=== PATIENT | female | born 1950 | race Two or more races ===

== ENCOUNTER → 2016-10-27 | Outpatient (REF) | payer BC ==
[2016-10-27 15:19] LABS: MEAN CORPUSCULAR HEMOGLOBIN 30.9 pg (27.0-33.0); MEAN CORPUSCULAR HGB CONC 33.3 g/dl (32.0-36.5); MEAN CORPUSCULAR VOLUME 92.8 fl (80.0-96.0); RED CELL DISTRIBUTION WIDTH 12.5 % (11.5-14.5); WHITE BLOOD COUNT 6.9 K/mm3 (4.0-10.0)
[2016-10-27 16:02] LABS: ALBUMIN 3.5 GM/DL (3.2-5.2); ALBUMIN/GLOBULIN RATIO 1.06 (1.00-1.93); ALKALINE PHOSPHATASE 123 U/L (45-117); ALT/SGPT 16 U/L (12-78); ANION GAP 7 MEQ/L (8-16); AST/SGOT 10 U/L (15-37); BILIRUBIN,TOTAL 0.3 MG/DL (0.2-1.0); BLOOD UREA NITROGEN 8 MG/DL (7-18); CALCIUM LEVEL 8.9 MG/DL (8.8-10.2); CARBON DIOXIDE LEVEL 31 MEQ/L (21-32); CHLORIDE LEVEL 104 MEQ/L (98-107); CHOLESTEROL LEVEL 154 MG/DL (<200); CREATININE FOR GFR 0.78 MG/DL (0.55-1.02); GLOMERULAR FILTRATION RATE > 60.0 (>45); GLUCOSE, FASTING 97 MG/DL (80-110); MAGNESIUM LEVEL 2.2 MG/DL (1.8-2.4); POTASSIUM SERUM 4.3 MEQ/L (3.5-5.1); SODIUM LEVEL 142 MEQ/L (136-145); TOTAL PROTEIN 6.8 GM/DL (6.4-8.2); TRIGLYCERIDES LEVEL 103 MG/DL (<150)
== END ==
LOC: M SFHCLACO 09:58
PROVIDERS: ATTEND Physician Assistant
DX: Z51.81 Encounter for therapeutic drug level monitoring (principal); Z79.899 Other long term (current) drug therapy; J44.9 Chronic obstructive pulmonary disease, unspecified; F17.200 Nicotine dependence, unspecified, uncomplicated; E78.2 Mixed hyperlipidemia; E55.9 Vitamin D deficiency, unspecified

== ENCOUNTER → 2017-04-06 | Outpatient (REF) | payer BC ==
[2017-04-06 15:12] LABS: MEAN CORPUSCULAR HEMOGLOBIN 30.6 pg (27.0-33.0); MEAN CORPUSCULAR HGB CONC 33.5 g/dl (32.0-36.5); MEAN CORPUSCULAR VOLUME 91.3 fl (80.0-96.0); RED CELL DISTRIBUTION WIDTH 13.2 % (11.5-14.5); WHITE BLOOD COUNT 8.2 10^3/uL (4.0-10.0)
[2017-04-06 15:17] LABS: ALBUMIN 3.7 GM/DL (3.2-5.2); ALBUMIN/GLOBULIN RATIO 1.06 (1.00-1.93); ALKALINE PHOSPHATASE 125 U/L (45-117); ALT/SGPT 18 U/L (12-78); ANION GAP 7 MEQ/L (8-16); AST/SGOT 10 U/L (15-37); BILIRUBIN,TOTAL 0.4 MG/DL (0.2-1.0); BLOOD UREA NITROGEN 8 MG/DL (7-18); CALCIUM LEVEL 9.5 MG/DL (8.8-10.2); CARBON DIOXIDE LEVEL 31 MEQ/L (21-32); CHLORIDE LEVEL 100 MEQ/L (98-107); CHOLESTEROL LEVEL 168 MG/DL (<200); GLOMERULAR FILTRATION RATE > 60.0 (>45); GLUCOSE, FASTING 94 MG/DL (80-110); MAGNESIUM LEVEL 2.3 MG/DL (1.8-2.4); SODIUM LEVEL 138 MEQ/L (136-145); TOTAL PROTEIN 7.2 GM/DL (6.4-8.2); TRIGLYCERIDES LEVEL 123 MG/DL (<150)
== END ==
LOC: M SFHCLACO 08:53
PROVIDERS: ATTEND Physician Assistant
DX: J44.9 Chronic obstructive pulmonary disease, unspecified (principal); F17.200 Nicotine dependence, unspecified, uncomplicated; E78.2 Mixed hyperlipidemia; K21.9 Gastro-esophageal reflux disease without esophagitis

== ENCOUNTER → 2017-07-06 | Outpatient (REF) | payer BC ==
[2017-07-06 15:17] LABS: ALBUMIN 3.6 GM/DL (3.2-5.2); ALBUMIN/GLOBULIN RATIO 1.24 (1.00-1.93); ALKALINE PHOSPHATASE 129 U/L (45-117); ALT/SGPT 17 U/L (12-78); ANION GAP 7 MEQ/L (8-16); AST/SGOT 12 U/L (7-37); BILIRUBIN,TOTAL 0.3 MG/DL (0.2-1.0); BLOOD UREA NITROGEN 10 MG/DL (7-18); CALCIUM LEVEL 8.8 MG/DL (8.8-10.2); CARBON DIOXIDE LEVEL 31 MEQ/L (21-32); CHLORIDE LEVEL 104 MEQ/L (98-107); CHOLESTEROL LEVEL 167 MG/DL (<200); CHOLESTEROL RISK RATIO 2.492 (<5); CREATININE FOR GFR 0.79 MG/DL (0.55-1.02); GLOMERULAR FILTRATION RATE > 60.0 (>45); GLUCOSE, FASTING 93 MG/DL (80-110); HDL CHOLESTEROL 67 MG/DL (>40); LDL CHOLESTEROL 79.2 MG/DL (<100); NON-HDL-C 100 MG/DL; POTASSIUM SERUM 3.8 MEQ/L (3.5-5.1); SODIUM LEVEL 142 MEQ/L (136-145); TOTAL PROTEIN 6.5 GM/DL (6.4-8.2); TRIGLYCERIDES LEVEL 104 MG/DL (<150)
[2017-07-06 15:24] LABS: TOTAL 25(OH) VITAMIN D 102.1 NG/ML (30.0-100.0)
== END ==
LOC: M SFHCLACO 09:14
DX: E78.2 Mixed hyperlipidemia (principal); K21.9 Gastro-esophageal reflux disease without esophagitis; E55.9 Vitamin D deficiency, unspecified
CPT/HCPCS: 80053

== ENCOUNTER → 2018-01-04 | Outpatient (REF) | payer BC ==
[2018-01-04 15:20] LABS: HEMATOCRIT 50.5 % (36.0-47.0); HEMOGLOBIN 16.1 g/dl (12.0-15.5); MEAN CORPUSCULAR HEMOGLOBIN 30.5 pg (27.0-33.0); MEAN CORPUSCULAR HGB CONC 31.9 g/dl (32.0-36.5); MEAN CORPUSCULAR VOLUME 95.6 fl (80.0-96.0); PLATELET COUNT, AUTOMATED 219 10^3/uL (150-450); RED BLOOD COUNT 5.28 10^6/uL (4.00-5.40); WHITE BLOOD COUNT 7.4 10^3/uL (4.0-10.0)
[2018-01-04 15:44] LABS: TOTAL 25(OH) VITAMIN D 64.7 NG/ML (30.0-100.0)
[2018-01-04 15:52] LABS: ALBUMIN/GLOBULIN RATIO 1.25 (1.00-1.93); ALKALINE PHOSPHATASE 139 U/L (45-117); ALT/SGPT 16 U/L (12-78); ANION GAP 6 MEQ/L (8-16); AST/SGOT 13 U/L (7-37); BILIRUBIN,TOTAL 0.5 MG/DL (0.2-1.0); BLOOD UREA NITROGEN 13 MG/DL (7-18); CALCIUM LEVEL 8.9 MG/DL (8.8-10.2); CARBON DIOXIDE LEVEL 31 MEQ/L (21-32); CHLORIDE LEVEL 105 MEQ/L (98-107); CHOLESTEROL LEVEL 168 MG/DL (<200); CHOLESTEROL RISK RATIO 2.709 (<5); CREATININE FOR GFR 0.81 MG/DL (0.55-1.30); GLOMERULAR FILTRATION RATE > 60.0 (>45); GLUCOSE, FASTING 88 MG/DL (70-100); HDL CHOLESTEROL 62 MG/DL (>40); LDL CHOLESTEROL 79.8 MG/DL (<100); MAGNESIUM LEVEL 2.3 MG/DL (1.8-2.4); NON-HDL-C 106 MG/DL; SODIUM LEVEL 142 MEQ/L (136-145); TOTAL PROTEIN 7.2 GM/DL (6.4-8.2); TRIGLYCERIDES LEVEL 131 MG/DL (<150)
== END ==
LOC: M SFHCLACO 08:33
DX: E55.9 Vitamin D deficiency, unspecified (principal); E78.2 Mixed hyperlipidemia; K21.9 Gastro-esophageal reflux disease without esophagitis; J44.9 Chronic obstructive pulmonary disease, unspecified; F17.200 Nicotine dependence, unspecified, uncomplicated

== ENCOUNTER → 2019-11-16 | Outpatient (REF) | payer MEDICARE | LOC: M SFHCADAM 10:55 | PROVIDERS: ATTEND Physician Assistant | DX: E78.2 Mixed hyperlipidemia (principal); K21.9 Gastro-esophageal reflux disease without esophagitis; E55.9 Vitamin D deficiency, unspecified ==

== ENCOUNTER → 2020-09-24 | Outpatient (CLI) | payer MEDICARE ==
--- NOTE | 2020-09-24 18:30 | REP ---
INDICATION: PAIN INLEFT HIP. COMPARISON: None. TECHNIQUE: AP and frogleg views of the left hip. Four views total. FINDINGS: There is severe osteoarthritis of the left hip with obliteration of the joint space superiorly, extensive reactive sclerosis and well established osteophyte formation. There is some remodeling and flattening of the superior surface of the femoral head. In addition, there are Jil trochanteric soft tissue calcifications consistent with calcific tendinitis or bursitis. The left hemipelvis is otherwise intact. Left SI joint is unremarkable. IMPRESSION: Severe osteoarthritis left hip. Jil trochanteric soft tissue calcifications. <Electronically signed by John Day > 09/24/20 [id number]
== END ==
LOC: M ADAMS 13:58
PROVIDERS: ATTEND Physician Assistant
DX: M16.12 Unilateral primary osteoarthritis, left hip (principal)

== ENCOUNTER → 2020-10-01 | Outpatient (CLI) | payer MEDICARE ==
--- NOTE | 2020-10-02 23:31 | ECWPNPC ---
PATIENT NAME: KULWANT ANTHONY : 1950 GENDER: FEMALE VISIT DATE: 10/01/2020 DISCHARGE DATE: 10/01/20 1220 VISIT LOCKED DATE TIME: PHYSICIAN: JESSICA FRASER RESOURCE: JESSICA FRASER REASON FOR APPOINTMENT 1. LEFT HIP HISTORY OF PRESENT ILLNESS DEPRESSION SCREENING: PHQ-9 LITTLE INTEREST OR PLEASURE IN DOING THINGSNOT AT ALL FEELING DOWN, DEPRESSED, OR HOPELESSMORE THAN HALF THE DAYS TROUBLE FALLING OR STAYING ASLEEP, OR SLEEPING TOO MUCHNEARLY EVERY DAY FEELING TIRED OR HAVING LITTLE ENERGYMORE THAN HALF THE DAYS POOR APPETITE OR OVEREATING MORE THAN HALF THE DAYS FEELING BAD ABOUT YOURSELF-OR THAT YOU ARE A FAILURE OR HAVE LET YOURSELF OR YOUR FAMILY DOWN NOT AT ALL TROUBLE CONCENTRATING ON THINGS, SUCH READING THE NEWSPAPER OR WATCHING TELEVISION SEVERAL DAYS MOVING OR SPEAKING SO SLOWLY THAT OTHER PEOPLE COULD HAVE NOTICED. OR THE OPPOSITE- BEING SO FIDGETY OR RESTLESS THAT YOU HAVE BEEN MOVING AROUND A LOT MORE THAN USUALNOT AT ALL THOUGHTS THAT YOU WOULD BE BETTER OFF , OR OF HURTING YOURSELF IN SOME WAY?NOT AT ALL TOTAL SCORE:10 INTERPRETATIONMODERATE DEPRESSION PHQ-2 (2015 EDITION) LITTLE INTEREST OR PLEASURE IN DOING THINGS?NOT AT ALL FEELING DOWN, DEPRESSED, OR HOPELESS?MORE THAN HALF THE DAYS TOTAL SCORE2 70-YEAR-OLD FEMALE IN FOR INITIAL PAIN CONSULT REGARDING LEFT HIP PAIN. PATIENT ADMITS THE PAIN IS BEEN PRESENT FOR YEARS AND DENIES TREATMENT IN THE PAST THAT IT HELPED QUELL HER PAIN. SHE RATES HER PAIN CURRENTLY AT A 10 OUT OF 10 AND DESCRIBES IT ACHING, CONTINUOUS, AND SHARP. PATIENT HAS BEEN ON TRAMADOL IN THE PAST WITH NO RELIEF. GENERAL: - - -. FALL RISK SCREENING: SCREENING : NO FALLS REPORTED IN THE LAST YEAR , : NO FALLS REPORTED IN THE LAST YEAR. PAIN SCREENING: PATIENT HAS A COMPLAINT OF ACUTE OR CHRONIC PAIN :YES LOCATION OF PAIN:LEFT HIP INTENSITY OF PAIN (SCALE OF 1 TO 10):10 WHAT DOES YOUR PAIN FEEL LIKE:ACHING, CONTINOUS, SHARP DURATION:CONTINOUS, CONSTANT, AWAKENS FROM SLEEP PAIN IS INCREASED BY:ACTIVITIES, PROLONGED STANDING PAIN IS DECREASED BY:OTHERS NOTHING RELIEVES THE PAIN. PATIENT HAS TRIED TRAMADOL AND STEROID INJECTIONS AND STATES SHE HAS "NO RELIEF WITH ANYTHING SHE HAS TRIED". NURSING NOTE: - - -. PAIN CENTER INTAKE QUESTIONS: DO YOU HAVE A HISTORY OF MRSA? :NO DO YOU TAKE A BLOOD THINNERS? :NO DO YOU HAVE ANY BLEEDING DISORDERS? :NO ANY NEW NUMBNESS OR WEAKNESS IN YOUR LEGS OR ARMS? :NO ANY PACEMAKER,DEFIBRILLATOR, OR DORSAL COLUMN STIMULATOR? :NO DO YOU HAVE ANY RASHES OR OPEN SORES? :NO ARE YOU ALLERGIC TO IV DYE? :NO ARE YOU DIABETIC? :NO ANY NEW PROBLEMS WITH YOUR MEDICATIONS? :NO HAVE YOU RECEIVED A VACCINE IN THE PAST 30 DAYS? :YES IF SO WHAT VACCINE AND WHEN? LAST COVID VACCINATION 08/25/2020 DO YOU PLAN TO RECEIVE A VACCINE IN THE NEXT 21 DAYS? :NO DO YOU NEED ANY PRESCRIPTION? :NO DO YOU TAKE ANY IMMUNOSUPPRESSIVE MEDICATIONS? :NO CURRENT MEDICATIONS TAKING ATORVASTATIN CALCIUM 20 MG TABLET 1 TABLET ORALLY ONCE A DAY IN THE MORNING TAKING FLONASE ALLERGY RELIEF 50 MCG/ACT SUSPENSION 1 SPRAY IN EACH NOSTRIL NASALLY ONCE A DAY TAKING ASPIRIN 81 MG TABLET DELAYED RELEASE 1 TABLET ORALLY ONCE A DAY IN THE AFTERNOON TAKING OXYGEN HOME AND PORTABLE (MOBILE WITHIN HOME), DX=J44.9 88% RA AMB, 92% C O2 AMB. 89% RA RESTING, 93% C O2 RESTING 24/7, NOTES: REQUESTING INOGEN TAKING SPIRIVA RESPIMAT 2.5 MCG/ACT AEROSOL SOLUTION 2 PUFFS INHALATION ONCE A DAY TAKING ALBUTEROL SULFATE (2.5 MG/3ML) 0.083% NEBULIZATION SOLUTION 3 ML INHALATION THREE TIMES A DAY TAKING PROAIR HFA 108 (90 BASE) MCG/ACT AEROSOL SOLUTION 2 PUFFS INHALATION EVERY 4 HRS NEEDED TAKING SEROQUEL 50 MG TABLET 1 TABLET AT BEDTIME, ALONG WITH THE SEROQUEL 400 MG ORALLY ONCE A DAY TAKING SEROQUEL 400 MG TABLET 1 TABLET ORALLY ONCE A DAY AT BEDTIME TAKING VIIBRYD 40 MG TABLET 1 TABLET WITH FOOD ORALLY ONCE A DAY IN THE MORNING TAKING OLANZAPINE 10 MG TABLET 1 TABLET ORALLY ONCE A DAY IN THE AFTERNOON TAKING LORAZEPAM 0.5 MG TABLET 1 TABLET ORALLY 5 TIMES A DAY NEEDED, MDD=5 TAKING OMEPRAZOLE 20 MG TABLET DELAYED RELEASE 2 TABLETS ORALLY ONCE A DAY TAKING PROLIA 60 MG/ML SOLUTION 1 PRE-FILLED SYRINGE SUBCUTANEOUS EVERY 6 MONTHS TAKING VITAMIN D (ERGOCALCIFEROL) 38650 UNIT CAPSULE 1 CAPSULE ORALLY ONCE A MONTH TAKING POSTURE-D CALCIUM/MAGNESIUM [phone] TABLET 1 TABLET ORALLY TWICE A DAY TAKING CALCIUM CITRATE PLUS - TABLET 1 TAB ORALLY TWICE A DAY TAKING IBUPROFEN 200 MG TABLET 4 TABLETS ORALLY 4 TIMES A DAY TAKING GLUCOSAMINE 500 MG TABLET 1 TABLET ORALLY TWICE A DAY TAKING VITAMIN C 500 MG CAPSULE DIRECTED ORALLY TAKING ADVAIR DISKUS 100-50 MCG/DOSE MISCELLANEOUS 1 PUFF INHALATION TWICE A DAY NOT-TAKING TRAMADOL HCL 50 MG TABLET 1 TABLET ORALLY 3 TIMES A DAY NEEDED NOT-TAKING CLINDAMYCIN HCL 300 MG CAPSULE 1 CAPSULE ORALLY TWICE A DAY MEDICATION LIST REVIEWED AND RECONCILED WITH THE PATIENT PAST MEDICAL HISTORY HYPERLIPIDEMIA COPD SMOKER POSTTRAUMATIC STRESS DISORDER ANXIETY WITH DEPRESSION GERD STRESS INCONTINENCE DIFFUSE OSTEOARTHRITIS OSTEOPOROSIS LEFT-SIDED SCIATICA VITAMIN D DEFICIENCY ALLERGIES PENICILLIN (FOR ALLERGIES USE ONLY) FOSAMAX SULFA (FOR ALLERGY USE ONLY) FAMILY HISTORY SON(S): ALIVE 1 BROTHER(S) , 3 SISTER(S) . 21 SON(S) , 1 DAUGHTER(S) . 1 SISTER OF HEART/LUNG DISEASE. SON DIAGNOSED WITH CANCER. SOCIAL HISTORY GENERAL: TOBACCO USE ARE YOU A:CURRENT SMOKER ARE YOU INTERESTED IN QUITTING?THINKING ABOUT QUITTING - HAS CUT DOWN TO LESS THAN 1 PPD HOW MANY CIGARETTES A DAY DO YOU SMOKE?11-20 HOW SOON AFTER YOU WAKE UP DO YOU SMOKE YOUR FIRST CIGARETTE?6-30 MIN HOW OFTEN DO YOU SMOKE CIGARETTES?EVERY DAY PATIENT COUNSELED ON THE DANGERS OF TOBACCO USE AND URGED TO QUIT:09/24/2020 LATEX QUESTIONNAIRE LATEX ALLERGY : HAVE YOU EVER DEVELOPED ANY TYPE OF REACTION AFTER HANDLING LATEX PRODUCTS SUCH RUBBER GLOVES, CONDOMS, DIAPHRAGMS, BALLOONS, SOCKS, OR UNDERWEAR?NO LATEX ALLERGY : HAVE YOU EVER DEVELOPED ANY TYPE OF REACTION DURING OR AFTER DENTAL APPOINTMENT, VAGINAL/RECTAL EXAMINATION, SURGICAL PROCEDURE, OR ANY OTHER EXPOSURE?NO LATEX RISK : HAVE YOU EVER HAD ANY DIFFICULTY BREATHING OR HIVES AFTER EATING OR HANDLING ANY FRUITS, OR VEGETABLES; SUCH KIWI, BANANAS, STONE FRUITS, OR CHESTNUTSNO LATEX RISK : DO YOU HAVE A PREVIOUS PERSONAL HISTORY OF MORE THAN NINE SURGERIES, SPINA BIFIDA, OR REPEATED CATHERIZATIONS? NO LATEX RISK : ARE YOU FREQUENTLY EXPOSED TO LATEX PRODUCTS IN YOUR OCCUPATION?NO DATE ASKED : 10/01/2020 ALCOHOL USE: RARELY. RECREATIONAL DRUG USE: NEVER DRUG USE?NO NO CAFFEINE HOW OFTEN AND HOW MUCH? 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 OCCUPATION: UNEMPLOYED. EXERCISE: NO REGULAR EXERCISE. MARITAL STATUS: SINGLE. NO OTHERS AT HOME. IMMUNIZATION PROGRAM ELIGIBILITY STATUS UNCHANGED:__ PARENT LAST NAME:__ FIRST NAME, MIDDLE INITIAL:__ MOTHER'S MAIDEN NAME:__ MEDICAID/MEDICAID MANAGED CARE PLAN:__ NOT INSURED:__ /[place]:__ UNDERINSURED:__ CHILD HEALTH PLUS B__ INSURANCE:__ INFLUENZA VACCINE:__ MALE 6 MONTH RISK ASSESSMENT FOR STD MONOGOMOUS?YES HIV POSITIVE?NO EVER INJECT DRUGS?NO FEMALE 6 MONTH RISK ASSESSMENT FOR STD DESCRIBE YOUR SEXUAL PARTNERS:MALE MONOGAMOUS?YES EVER INJECT DRUGS?NO IS THERE ANYTHING ELSE WE SHOULD TALK ABOUT CONCERNING YOUR SEXUAL HISTORY OR PRACTICE?YES INTENSITY SCALE REVIEWED HOUSING: HOUSE. REVIEW OF SYSTEMS CONSTITUTIONAL: ANY RECENT FEVER NO . CHILLS NO . WEIGHT CHANGE OF UNKNOWN REASONS NO . MUSCULOSKELETAL: ANY UNUSUAL JOINT PAIN OR SWELLING NOT MENTIONED NO . SYSTEMIC LUPUS NO . ANY NEUROMUSCULAR DISORDER NOT MENTIONED NO . LYME DISEASE NO . GASTROENTEROLOGY: ANY NEW CHANGE IN BOWEL CONTROL? NO . HISTORY OF LIVER DISORDER NOT MENTIONED NO . HISTORY OF UNUSUAL ABDOMINAL PAIN OR CRAMPING NOT MENTIONED NO . NO CONSTIPATION. GENITOURINARY: ANY NEW CHANGE IN BLADDER CONTROL? NO . ANY RENAL/KIDNEY CONDITON NOT MENTIONED NO . NEUROLOGY: HISTORY OF TBI NOT MENTIONED NO . OTHER NEW NUMBNESS OR PAIN PATTERNS NOT MENTIONED NO . NEW ONSET DIZZINESS OR NEUROLOGICAL CHANGES NOT MENTIONED NO . HISTORY OF SEVERE HEADACHES NOT MENTIONED NO . HISTORY OF STROKE OR NEUROLOGICAL DISORDER NOT MENTIONED NO . CARDIOLOGY: HEART SURGERY NO . CONGESTIVE HEART FAILURE/FLUID OVERLOAD NOT MENTIONED NO . HISTORY OF CHEST PAIN,IRREGULAR HEART BEAT NOT MENTIONED NO . RESPIRATORY: SHORTNESS OF BREATH ON EXERTION, WHEEZES, UNUSUAL COUGH NOT MENTIONED NO . ENDOCRINOLOGY: ADRENAL GLAND OR THYROID DISORDERS NOT MENTIONED NO . UNUSUAL URINATION, DIZZINESS OR LETHARGY NOT MENTIONED NO . VITAL SIGNS WT 156.6 LBS, HT 62 IN, BMI 28.64 INDEX, BP 147/68 MM HG, HR 134 /MIN, RR 18 /MIN, TEMP 97.7 F, OXYGEN SAT % 90%, SAFE IN ENV? (Y/N) YES, NA INITIALS NJ 11:10, REVIEWED BY: ED GIBSON MA. EXAMINATION GENERAL EXAMINATION: GENERALNO ACUTE DISTRESS, WELL NOURISHED AND HYDRATED. PSYCHAPPROPRIATE MOOD AND AFFECT . LUNGS:CLEAR TO AUSCULTATION BILATERALLY, NO WHEEZES, RHONCHI, RALES. HEART:NO MURMURS, REGULAR RATE AND RHYTHM. MUSCULOSKELETAL:EXQUISITELY TENDER OVER LEFT HIP . ASSESSMENTS PRIMARY OSTEOARTHRITIS OF BOTH HIPS - M16.0 (PRIMARY) USE OF OPIATES FOR THERAPEUTIC PURPOSES - Z79.891 TREATMENT PRIMARY OSTEOARTHRITIS OF BOTH HIPS STOP TRAMADOL HCL TABLET, 50 MG, 1 TABLET, ORALLY, 3 TIMES A DAY NEEDED START HYDROCODONE-ACETAMINOPHEN TABLET, 5-325 MG, 1 TABLET NEEDED, ORALLY, EVERY 12 HRS MDD 2, 30 DAYS, 60 LAB: URINE TEST GROUP LACIE GIBSON 10/01/2020 12:15:50 PM > LAST DOSE : LORAZEPAM 10/01/2020, TRAMADOL 09/26/2020 NOTES: 70-YEAR-OLD FEMALE IN FOR INITIAL PAIN CONSULT. GIVEN PRESENTING SYMPTOMS RECOMMEND HYDROCODONE 5/325 MG TWICE A DAY NEEDED FOR PAIN WITH FOLLOW-UP IN ONE MONTH TO DETERMINE EFFICACY OF TREATMENT. PATIENT HAS EXPRESSED UNDERSTANDING OF AND WAS IN AGREEMENT WITH TREATMENT PLAN. GIVEN TIME TO ASK QUESTIONS AND EXPRESS CONCERNS. , ISTOP REGISTRY REVIEWED AND DEMONSTRATES COMPLLIANCE. (REF # [id number] ) BRINGS IN MEDICATIONS WHICH IS APPROPRIATE FOR WHAT WAS DISPENSED. RECENT URINE TOXICOLOGY REVIEWED. NO UNAUTHORIZED MEDICATIONS. NO ILLICIT SUBSTANCES AND PRESCRIBED MEDICATIONS WERE PRESENT. PROCEDURE CODES FA211 ESTABILISHED PATIENT [facility] CHARGE DISPOSITION & COMMUNICATION FOLLOW UP 4 WEEKS (REASON: NEW MEDICATION) ELECTRONICALLY SIGNED BY PEG REYES ON 10/02/2020 AT 10:42 AM EDT DISCLAIMER : THIS IS A VISIT SUMMARY EXTRACTED FROM THE [employer] CHART. IT IS NOT A COPY OF THE [employer] PROGRESS NOTE. TRAVIS
== END ==
LOC: M PAIN 11:00
PROVIDERS: ATTEND Family Medicine
DX: M16.0 Bilateral primary osteoarthritis of hip (principal); J44.9 Chronic obstructive pulmonary disease, unspecified; K21.9 Gastro-esophageal reflux disease without esophagitis; E55.9 Vitamin D deficiency, unspecified; F17.210 Nicotine dependence, cigarettes, uncomplicated; Z86.59 Personal history of other mental and behavioral disorders; Z88.0 Allergy status to penicillin; Z88.2 Allergy status to sulfonamides; Z88.8 Allergy status to other drugs, medicaments and biological substances; Z79.82 Long term (current) use of aspirin; Z79.899 Other long term (current) drug therapy

== ENCOUNTER → 2020-10-29 | Outpatient (CLI) | payer MEDICARE ==
--- NOTE | 2020-10-31 02:35 | ECWPNPC ---
PATIENT NAME: KULWANT ANTHONY : 1950 GENDER: FEMALE VISIT DATE: 10/29/2020 DISCHARGE DATE: 10/29/20 1552 VISIT LOCKED DATE TIME: PHYSICIAN: JESSICA FRASER RESOURCE: JESSICA FRASER REASON FOR APPOINTMENT 1. NEW MEDICATION HISTORY OF PRESENT ILLNESS GENERAL: -70-YEAR-OLD FEMALE IN FOR CHRONIC LEFT HIP PAIN FOLLOW-UP. SHE RATES HER PAIN CURRENTLY AT A 6 OUT OF 10 AND DESCRIBES IT ACHING, AND CONTINUOUS. PATIENT WAS STARTED ON HYDROCODONE AT LAST CLINIC VISIT AND SHE ADMITS TODAY THAT IT DOES HELP HOWEVER IT DOES NOT COMPLETELY COVER HER PAIN. FALL RISK SCREENING: SCREENING : NO FALLS REPORTED IN THE LAST YEAR. PAIN SCREENING: PATIENT HAS A COMPLAINT OF ACUTE OR CHRONIC PAIN :YES LOCATION OF PAIN:LOW BACK, LEFT HIP INTENSITY OF PAIN (SCALE OF 1 TO 10):6 WHAT DOES YOUR PAIN FEEL LIKE:ACHING, CONTINOUS DURATION:CONTINOUS, CONSTANT, AWAKENS FROM SLEEP PAIN IS INCREASED BY:ACTIVITIES, PROLONGED STANDING PAIN IS DECREASED BY:USE OF PAIN MEDICATIONS, SITTING PATIENT STATES THE "PAIN MEDS HELP VERY LITTLE." NURSING NOTE: -. PAIN CENTER INTAKE QUESTIONS: DO YOU HAVE A HISTORY OF MRSA? :NO DO YOU TAKE A BLOOD THINNERS? :NO DO YOU HAVE ANY BLEEDING DISORDERS? :NO ANY NEW NUMBNESS OR WEAKNESS IN YOUR LEGS OR ARMS? :NO ANY PACEMAKER,DEFIBRILLATOR, OR DORSAL COLUMN STIMULATOR? :NO DO YOU HAVE ANY RASHES OR OPEN SORES? :NO ARE YOU ALLERGIC TO IV DYE? :NO ARE YOU DIABETIC? :NO ANY NEW PROBLEMS WITH YOUR MEDICATIONS? :YES WILL DISCUSS WITH PROVIDER HAVE YOU RECEIVED A VACCINE IN THE PAST 30 DAYS? :NO DO YOU PLAN TO RECEIVE A VACCINE IN THE NEXT 21 DAYS? :NO DO YOU NEED ANY PRESCRIPTION? :NO DO YOU TAKE ANY IMMUNOSUPPRESSIVE MEDICATIONS? :YES LAST DOSE OF PREDNISOLONE 10/29/2020 CURRENT MEDICATIONS TAKING ATORVASTATIN CALCIUM 20 MG TABLET 1 TABLET ORALLY ONCE A DAY IN THE MORNING TAKING FLONASE ALLERGY RELIEF 50 MCG/ACT SUSPENSION 1 SPRAY IN EACH NOSTRIL NASALLY ONCE A DAY TAKING ASPIRIN 81 MG TABLET DELAYED RELEASE 1 TABLET ORALLY ONCE A DAY IN THE AFTERNOON TAKING OXYGEN HOME AND PORTABLE (MOBILE WITHIN HOME), DX=J44.9 88% RA AMB, 92% C O2 AMB. 89% RA RESTING, 93% C O2 RESTING 24/7, NOTES: REQUESTING INOGEN TAKING SPIRIVA RESPIMAT 2.5 MCG/ACT AEROSOL SOLUTION 2 PUFFS INHALATION ONCE A DAY TAKING ALBUTEROL SULFATE (2.5 MG/3ML) 0.083% NEBULIZATION SOLUTION 3 ML INHALATION THREE TIMES A DAY TAKING PROAIR HFA 108 (90 BASE) MCG/ACT AEROSOL SOLUTION 2 PUFFS INHALATION EVERY 4 HRS NEEDED TAKING SEROQUEL 50 MG TABLET 1 TABLET AT BEDTIME, ALONG WITH THE SEROQUEL 400 MG ORALLY ONCE A DAY TAKING SEROQUEL 400 MG TABLET 1 TABLET ORALLY ONCE A DAY AT BEDTIME TAKING VIIBRYD 40 MG TABLET 1 TABLET WITH FOOD ORALLY ONCE A DAY IN THE MORNING TAKING OLANZAPINE 10 MG TABLET 1 TABLET ORALLY ONCE A DAY IN THE AFTERNOON TAKING LORAZEPAM 0.5 MG TABLET 1 TABLET ORALLY 5 TIMES A DAY NEEDED, MDD=5 TAKING PROLIA 60 MG/ML SOLUTION 1 PRE-FILLED SYRINGE SUBCUTANEOUS EVERY 6 MONTHS TAKING VITAMIN D (ERGOCALCIFEROL) 58769 UNIT CAPSULE 1 CAPSULE ORALLY ONCE A MONTH TAKING POSTURE-D CALCIUM/MAGNESIUM [phone] TABLET 1 TABLET ORALLY TWICE A DAY TAKING CALCIUM CITRATE PLUS - TABLET 1 TAB ORALLY TWICE A DAY TAKING IBUPROFEN 200 MG TABLET 4 TABLETS ORALLY 4 TIMES A DAY TAKING GLUCOSAMINE 500 MG TABLET 1 TABLET ORALLY TWICE A DAY TAKING VITAMIN C 500 MG CAPSULE DIRECTED ORALLY TAKING ADVAIR DISKUS 100-50 MCG/DOSE MISCELLANEOUS 1 PUFF INHALATION TWICE A DAY TAKING HYDROCODONE-ACETAMINOPHEN 5-325 MG TABLET 1 TABLET NEEDED ORALLY EVERY 12 HRS MDD 2 TAKING OMEPRAZOLE 20 MG TABLET DELAYED RELEASE 2 TABLETS ORALLY ONCE A DAY NOT-TAKING PREDNISONE 20 MG TABLET 3 TABS QAM X 4D, THEN 2 TABS X 4D, THEN 1 TAB X 4D, THEN 1/2 TAB X 4D ORALLY ONCE A DAY, NOTES: LAST DOSE 10/29/2020 NOT-TAKING CLINDAMYCIN HCL 300 MG CAPSULE 1 CAPSULE ORALLY TWICE A DAY MEDICATION LIST REVIEWED AND RECONCILED WITH THE PATIENT PAST MEDICAL HISTORY HYPERLIPIDEMIA COPD SMOKER POSTTRAUMATIC STRESS DISORDER ANXIETY WITH DEPRESSION GERD STRESS INCONTINENCE DIFFUSE OSTEOARTHRITIS OSTEOPOROSIS LEFT-SIDED SCIATICA VITAMIN D DEFICIENCY ALLERGIES PENICILLIN (FOR ALLERGIES USE ONLY) FOSAMAX SULFA (FOR ALLERGY USE ONLY) SURGICAL HISTORY APPENDECTOMY CHILDHOOD SURGERY OF THE FEET 1967 UNILATERAL NEPHRECTOMY SOCIAL HISTORY GENERAL: TOBACCO USE ARE YOU A:CURRENT SMOKER ARE YOU INTERESTED IN QUITTING?THINKING ABOUT QUITTING - HAS CUT DOWN TO LESS THAN 1 PPD COUNSELED THE PATIENT ON SMOKING CESSATION, EDUCATION [id number]/04/2021 HOW MANY CIGARETTES A DAY DO YOU SMOKE?11-20 HOW SOON AFTER YOU WAKE UP DO YOU SMOKE YOUR FIRST CIGARETTE?6-30 MIN HOW OFTEN DO YOU SMOKE CIGARETTES?EVERY DAY PATIENT COUNSELED ON THE DANGERS OF TOBACCO USE AND URGED TO QUIT:09/24/2020 LATEX QUESTIONNAIRE LATEX ALLERGY : HAVE YOU EVER DEVELOPED ANY TYPE OF REACTION AFTER HANDLING LATEX PRODUCTS SUCH RUBBER GLOVES, CONDOMS, DIAPHRAGMS, BALLOONS, SOCKS, OR UNDERWEAR?NO LATEX ALLERGY : HAVE YOU EVER DEVELOPED ANY TYPE OF REACTION DURING OR AFTER DENTAL APPOINTMENT, VAGINAL/RECTAL EXAMINATION, SURGICAL PROCEDURE, OR ANY OTHER EXPOSURE?NO LATEX RISK : HAVE YOU EVER HAD ANY DIFFICULTY BREATHING OR HIVES AFTER EATING OR HANDLING ANY FRUITS, OR VEGETABLES; SUCH KIWI, BANANAS, STONE FRUITS, OR CHESTNUTSNO LATEX RISK : DO YOU HAVE A PREVIOUS PERSONAL HISTORY OF MORE THAN NINE SURGERIES, SPINA BIFIDA, OR REPEATED CATHERIZATIONS? NO LATEX RISK : ARE YOU FREQUENTLY EXPOSED TO LATEX PRODUCTS IN YOUR OCCUPATION?NO DATE ASKED : 10/29/2020 ALCOHOL USE: RARELY. RECREATIONAL DRUG USE: NEVER DRUG USE?NO NO CAFFEINE HOW OFTEN AND HOW MUCH? 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 OCCUPATION: UNEMPLOYED. EXERCISE: NO REGULAR EXERCISE. MARITAL STATUS: SINGLE. NO OTHERS AT HOME. IMMUNIZATION PROGRAM ELIGIBILITY STATUS UNCHANGED:__ PARENT LAST NAME:__ FIRST NAME, MIDDLE INITIAL:__ MOTHER'S MAIDEN NAME:__ MEDICAID/MEDICAID MANAGED CARE PLAN:__ NOT INSURED:__ /[place]:__ UNDERINSURED:__ CHILD HEALTH PLUS B__ INSURANCE:__ INFLUENZA VACCINE:__ MALE 6 MONTH RISK ASSESSMENT FOR STD MONOGOMOUS?YES HIV POSITIVE?NO EVER INJECT DRUGS?NO FEMALE 6 MONTH RISK ASSESSMENT FOR STD DESCRIBE YOUR SEXUAL PARTNERS:MALE MONOGAMOUS?YES EVER INJECT DRUGS?NO IS THERE ANYTHING ELSE WE SHOULD TALK ABOUT CONCERNING YOUR SEXUAL HISTORY OR PRACTICE?YES INTENSITY SCALE REVIEWED HOUSING: HOUSE. HOSPITALIZATION/MAJOR DIAGNOSTIC PROCEDURE SURGERIES ABOVE CHILDBIRTH 3 SEPSIS 09/2020 CARBON DIOXIDE POISONING 09/2020 REVIEW OF SYSTEMS CONSTITUTIONAL: ANY RECENT FEVER NO . CHILLS NO . WEIGHT CHANGE OF UNKNOWN REASONS NO . GASTROENTEROLOGY: NEW UNEXPLAINABLE CHANGES IN BOWEL CONTROL NO . CONSTIPATION NO . GENITOURINARY: ANY NEW CHANGE IN BLADDER CONTROL? NO . NEUROLOGY: NEW ONSET DIZZINESS OR NEUROLOGICAL CHANGES NOT MENTIONED NO . NEW NUMBNESS OR PAIN PATTERNS NOT MENTIONED AND PERTINENT TO TODAY'S VISIT NO . CARDIOLOGY: NEW CHEST PRESSURE NO . PATIENT DENIES NO . RESPIRATORY: UNEXPLAINABLE COUGH NO . NEW SHORTNESS OF BREATH NO . VITAL SIGNS WT 155.0 LBS, HT 62 IN, BMI 28.35 INDEX, BP 139/64 MM HG, HR 135 /MIN, RR 18 /MIN, TEMP 97.0 F, OXYGEN SAT % 92%, SAFE IN ENV? (Y/N) YES, NA INITIALS AW 1453, REVIEWED BY: ED GIBSON MA. EXAMINATION GENERAL EXAMINATION: GENERALNO ACUTE DISTRESS, WELL NOURISHED AND HYDRATED. PSYCHAPPROPRIATE MOOD AND AFFECT . LUNGS:DECREASED BILATERALLY BILATERAL WHEEZES NOTED. HEART:NO MURMURS, REGULAR RATE AND RHYTHM. ASSESSMENTS PRIMARY OSTEOARTHRITIS OF BOTH HIPS - M16.0 (PRIMARY), RISK: (NULL) USE OF OPIATES FOR THERAPEUTIC PURPOSES - Z79.891 TREATMENT PRIMARY OSTEOARTHRITIS OF BOTH HIPS LAB: ORAL FLUID TEST GROUP [facility] 10/29/2020 3:48:37 PM > LAST DOSE HYDROCODONE/ACETAMINOPHEN 10/29/20 1205P, LAST DOSE LORAZEPAM 10/29/20 1205P. USE OF OPIATES FOR THERAPEUTIC PURPOSES INCREASE HYDROCODONE-ACETAMINOPHEN TABLET, 5-325 MG, 1 TABLET NEEDED, ORALLY, EVERY 8 HRS NEEDED FOR PAIN MDD 3, 30 DAYS, 90 NOTES: 70-YEAR-OLD FEMALE IN FOR CHRONIC PAIN FOLLOW-UP. GIVEN PRESENTING SYMPTOMS RECOMMEND INCREASING HYDROCODONE TO 3 TIMES A DAY DOSING WITH FOLLOW-UP IN 2 MONTHS. PATIENT HAS EXPRESSED UNDERSTANDING OF AND WAS IN AGREEMENT WITH TREATMENT PLAN. GIVEN TIME TO ASK QUESTIONS AND EXPRESS CONCERNS. ISTOP REGISTRY REVIEWED AND DEMONSTRATES COMPLLIANCE. (REF #[id number] ) BRINGS IN MEDICATIONS WHICH IS APPROPRIATE FOR WHAT WAS DISPENSED. RECENT URINE TOXICOLOGY REVIEWED. NO UNAUTHORIZED MEDICATIONS. NO ILLICIT SUBSTANCES AND PRESCRIBED MEDICATIONS WERE PRESENT. PROCEDURE CODES FA211 ESTABILISHED PATIENT [facility] CHARGE DISPOSITION & COMMUNICATION FOLLOW UP 2 MONTHS (REASON: HIP PAIN ) ELECTRONICALLY SIGNED BY PEG REYES ON 10/30/2020 AT 09:55 AM EDT DISCLAIMER : THIS IS A VISIT SUMMARY EXTRACTED FROM THE [facility] CHART. IT IS NOT A COPY OF THE [employer] PROGRESS NOTE. TRAVIS
== END ==
LOC: M PAIN 14:30
PROVIDERS: ATTEND Family Medicine
DX: M16.0 Bilateral primary osteoarthritis of hip (principal); G89.29 Other chronic pain; J44.9 Chronic obstructive pulmonary disease, unspecified; K21.9 Gastro-esophageal reflux disease without esophagitis; E55.9 Vitamin D deficiency, unspecified; F17.210 Nicotine dependence, cigarettes, uncomplicated; Z86.59 Personal history of other mental and behavioral disorders; Z88.0 Allergy status to penicillin; Z88.2 Allergy status to sulfonamides; Z88.8 Allergy status to other drugs, medicaments and biological substances; Z79.82 Long term (current) use of aspirin; Z79.899 Other long term (current) drug therapy

== ENCOUNTER → 2020-11-11 | Outpatient (REF) | payer MEDICARE | LOC: M SFHCADAM 14:40 | PROVIDERS: ATTEND Physician Assistant | DX: E87.6 Hypokalemia (principal) ==

== ENCOUNTER → 2020-12-31 | Outpatient (CLI) | payer MEDICARE ==
--- NOTE | 2021-01-03 04:10 | ECWPNPC ---
PATIENT NAME: KULWANT ANTHONY : 1950 GENDER: FEMALE VISIT DATE: 12/31/2020 DISCHARGE DATE: 12/31/20 1508 VISIT LOCKED DATE TIME: PHYSICIAN: JESSICA FRASER RESOURCE: JESSICA FRASER REASON FOR APPOINTMENT 1. HIP PAIN HISTORY OF PRESENT ILLNESS GENERAL: HPI 70-YEAR-OLD FEMALE IN FOR CHRONIC PAIN FOLLOW-UP. SHE RATES HER PAIN CURRENTLY AT A 10 OUT OF 10 AND DESCRIBES IT ACHING AND CONTINUOUS. PATIENT FEELS HER MEDICATIONS ARE HELPFUL BUT DOES ADMIT THAT THEY MAKE HER DROWSY.. -. FALL RISK SCREENING: SCREENING ONE FALLS THIS YEAR PATIENT STATED THAT SHE DID GO THE ER. PAIN SCREENING: PATIENT HAS A COMPLAINT OF ACUTE OR CHRONIC PAIN :YES LOCATION OF PAIN:LEFT HIP, RIGHT HIP INTENSITY OF PAIN (SCALE OF 1 TO 10):10 WHAT DOES YOUR PAIN FEEL LIKE:ACHING, CONTINOUS DURATION:CONTINOUS, CONSTANT, ALL DAY PAIN IS INCREASED BY:OTHERS NOTHING ITS JUST ALWAYS THERE PAIN IS DECREASED BY:USE OF PAIN MEDICATIONS FOR A LITTLE WHILE NURSING NOTE: -. PAIN CENTER INTAKE QUESTIONS: DO YOU HAVE A HISTORY OF MRSA? :NO DO YOU TAKE A BLOOD THINNERS? :NO ASPIRIN 81 MG DO YOU HAVE ANY BLEEDING DISORDERS? :NO ANY NEW NUMBNESS OR WEAKNESS IN YOUR LEGS OR ARMS? :NO ANY PACEMAKER,DEFIBRILLATOR, OR DORSAL COLUMN STIMULATOR? :NO DO YOU HAVE ANY RASHES OR OPEN SORES? :NO ARE YOU ALLERGIC TO IV DYE? :NO ARE YOU DIABETIC? :NO ANY NEW PROBLEMS WITH YOUR MEDICATIONS? :YES WILL DISCUSS WITH PROVIDER, HYDROCODONE-ACETAMINOPHEN 5-325 MG MAKING THE PATIENT SLEEPY HAVE YOU RECEIVED A VACCINE IN THE PAST 30 DAYS? :NO DO YOU PLAN TO RECEIVE A VACCINE IN THE NEXT 21 DAYS? :NO DO YOU NEED ANY PRESCRIPTION? :NO DO YOU TAKE ANY IMMUNOSUPPRESSIVE MEDICATIONS? :YES LAST DOSE OF PREDNISOLONE 10/29/2020 CURRENT MEDICATIONS TAKING METOPROLOL TARTRATE 25 MG TABLET 1 TABLET WITH FOOD ORALLY TWICE A DAY TAKING ASPIRIN 81 MG TABLET DELAYED RELEASE 1 TABLET ORALLY ONCE A DAY IN THE AFTERNOON TAKING ATORVASTATIN CALCIUM 20 MG TABLET 1 TABLET ORALLY ONCE A DAY IN THE MORNING TAKING OXYGEN HOME AND PORTABLE (MOBILE WITHIN HOME), DX=J44.9 88% RA AMB, 92% C O2 AMB. 89% RA RESTING, 93% C O2 RESTING 24/7, NOTES: REQUESTING INOGEN TAKING SPIRIVA RESPIMAT 2.5 MCG/ACT AEROSOL SOLUTION 2 PUFFS INHALATION ONCE A DAY TAKING ADVAIR DISKUS 100-50 MCG/DOSE MISCELLANEOUS 1 PUFF INHALATION TWICE A DAY TAKING ALBUTEROL SULFATE (2.5 MG/3ML) 0.083% NEBULIZATION SOLUTION 3 ML INHALATION THREE TIMES A DAY TAKING PROAIR HFA 108 (90 BASE) MCG/ACT AEROSOL SOLUTION 2 PUFFS INHALATION EVERY 4 HRS NEEDED TAKING HYDROCODONE-ACETAMINOPHEN 5-325 MG TABLET 1 TABLET NEEDED ORALLY EVERY 8 HRS NEEDED FOR PAIN MDD 3 TAKING IBUPROFEN 200 MG TABLET 4 TABLETS ORALLY 4 TIMES A DAY TAKING OMEPRAZOLE 20 MG TABLET DELAYED RELEASE 2 TABLETS ORALLY ONCE A DAY TAKING SEROQUEL 50 MG TABLET 1 TABLET AT BEDTIME, ALONG WITH THE SEROQUEL 400 MG ORALLY ONCE A DAY TAKING VIIBRYD 40 MG TABLET 1 TABLET WITH FOOD ORALLY ONCE A DAY IN THE MORNING TAKING LORAZEPAM 0.5 MG TABLET 1 TABLET ORALLY 5 TIMES A DAY NEEDED, MDD=5 TAKING PROLIA 60 MG/ML SOLUTION 1 PRE-FILLED SYRINGE SUBCUTANEOUS EVERY 6 MONTHS TAKING VITAMIN D (ERGOCALCIFEROL) 65902 UNIT CAPSULE 1 CAPSULE ORALLY ONCE A MONTH TAKING CALCIUM CITRATE PLUS - TABLET 1 TAB ORALLY TWICE A DAY TAKING POSTURE-D CALCIUM/MAGNESIUM [phone] TABLET 1 TABLET ORALLY TWICE A DAY TAKING FLONASE ALLERGY RELIEF 50 MCG/ACT SUSPENSION 1 SPRAY IN EACH NOSTRIL NASALLY ONCE A DAY TAKING GLUCOSAMINE 500 MG TABLET 1 TABLET ORALLY TWICE A DAY TAKING VITAMIN C 500 MG CAPSULE DIRECTED ORALLY TAKING NEBULIZER - DEVICE DIRECTED DX: J44.9 DAILY, NOTES: FAX TO [facility] TAKING PREDNISONE 20 MG TABLET 2 TABS QD X 14D, THEN 1 TAB QD X 14D ORALLY ONCE A DAY NOT-TAKING PREDNISONE 20 MG TABLET 3 TABS QAM X 4D, THEN 2 TABS X 4D, THEN 1 TAB X 4D, THEN 1/2 TAB X 4D ORALLY ONCE A DAY, NOTES: LAST DOSE 10/29/2020 NOT-TAKING CEFDINIR 300 MG CAPSULE 1 CAP ORALLY TWICE A DAY MEDICATION LIST REVIEWED AND RECONCILED WITH THE PATIENT PAST MEDICAL HISTORY HYPERLIPIDEMIA COPD SMOKER POSTTRAUMATIC STRESS DISORDER ANXIETY WITH DEPRESSION GERD STRESS INCONTINENCE DIFFUSE OSTEOARTHRITIS OSTEOPOROSIS LEFT-SIDED SCIATICA VITAMIN D DEFICIENCY COVID VACCINE X 2, MODERNA, 07/2020 ONE FALLS THIS YEAR PATIENT STATED THAT SHE DID GO THE ER ALLERGIES PENICILLIN (FOR ALLERGIES USE ONLY): RASH - ALLERGY FOSAMAX: RASH - SIDE EFFECTS SULFA (FOR ALLERGY USE ONLY): RASH - ALLERGY SURGICAL HISTORY APPENDECTOMY CHILDHOOD SURGERY OF THE FEET 1967 UNILATERAL NEPHRECTOMY FAMILY HISTORY SON(S): ALIVE 1 BROTHER(S) , 3 SISTER(S) . 21 SON(S) , 1 DAUGHTER(S) . 1 SISTER OF HEART/LUNG DISEASE. SON DIAGNOSED WITH CANCER. SOCIAL HISTORY GENERAL: TOBACCO USE ARE YOU A:CURRENT SMOKER ARE YOU INTERESTED IN QUITTING?THINKING ABOUT QUITTING - HAS CUT DOWN TO LESS THAN 1 PPD COUNSELED THE PATIENT ON SMOKING CESSATION, EDUCATION [id number]/06/2021 HOW MANY CIGARETTES A DAY DO YOU SMOKE?11-20 HOW SOON AFTER YOU WAKE UP DO YOU SMOKE YOUR FIRST CIGARETTE?6-30 MIN HOW OFTEN DO YOU SMOKE CIGARETTES?EVERY DAY PATIENT COUNSELED ON THE DANGERS OF TOBACCO USE AND URGED TO QUIT:11/11/2020 LATEX QUESTIONNAIRE LATEX ALLERGY : HAVE YOU EVER DEVELOPED ANY TYPE OF REACTION AFTER HANDLING LATEX PRODUCTS SUCH RUBBER GLOVES, CONDOMS, DIAPHRAGMS, BALLOONS, SOCKS, OR UNDERWEAR?NO LATEX ALLERGY : HAVE YOU EVER DEVELOPED ANY TYPE OF REACTION DURING OR AFTER DENTAL APPOINTMENT, VAGINAL/RECTAL EXAMINATION, SURGICAL PROCEDURE, OR ANY OTHER EXPOSURE?NO LATEX RISK : HAVE YOU EVER HAD ANY DIFFICULTY BREATHING OR HIVES AFTER EATING OR HANDLING ANY FRUITS, OR VEGETABLES; SUCH KIWI, BANANAS, STONE FRUITS, OR CHESTNUTSNO LATEX RISK : DO YOU HAVE A PREVIOUS PERSONAL HISTORY OF MORE THAN NINE SURGERIES, SPINA BIFIDA, OR REPEATED CATHERIZATIONS? NO LATEX RISK : ARE YOU FREQUENTLY EXPOSED TO LATEX PRODUCTS IN YOUR OCCUPATION?NO DATE ASKED : 12/31/2020 ALCOHOL USE: RARELY. RECREATIONAL DRUG USE: NEVER DRUG USE?NO NO CAFFEINE HOW OFTEN AND HOW MUCH? 4 CUPS OF COFFEE A DAY HIV / HEP-C SCREENING HIV TEST OFFERED TO PATIENT:YES HEP-C TEST OFFERED TO PATIENT:YES REASON:PATIENT DECLINED REASON:PATIENT DECLINED LANGUAGE LANGUAGES SPOKEN:GEORGIAN EDUCATION LEVEL OF EDUCATION:FINISHED HIGH SCHOOL LEARNING BARRIERS / SPECIAL NEEDS CHANGE FROM LAST VISIT?NO BARRIERS TO LEARNING?YES COMMENTS SHORT TERM MEMORY LOST HEARING IMPAIRED?YES :HEARING AIDES VISION IMPAIRED?YES :CORRECTIVE LENSES COGNITIVELY IMPAIRED?NO READINESS TO LEARN?YES LEARNING PREFERENCES?NO LEARNING CAPABILITIES PRESENT?YES EMOTIONAL BARRIERS?NO SPECIAL DEVICES?YES :CANE, WALKER ENVIRONMENTAL ADVISER NEEDED?NO NO DOMESTIC VIOLENCE . OCCUPATION: UNEMPLOYED. EXERCISE: NO REGULAR EXERCISE. MARITAL STATUS: SINGLE. NO OTHERS AT HOME. IMMUNIZATION PROGRAM ELIGIBILITY STATUS UNCHANGED:__ PARENT LAST NAME:__ FIRST NAME, MIDDLE INITIAL:__ MOTHER'S MAIDEN NAME:__ MEDICAID/MEDICAID MANAGED CARE PLAN:__ NOT INSURED:__ /[place]:__ UNDERINSURED:__ CHILD HEALTH PLUS B__ INSURANCE:__ INFLUENZA VACCINE:__ MALE 6 MONTH RISK ASSESSMENT FOR STD MONOGOMOUS?YES HIV POSITIVE?NO EVER INJECT DRUGS?NO FEMALE 6 MONTH RISK ASSESSMENT FOR STD DESCRIBE YOUR SEXUAL PARTNERS:MALE MONOGAMOUS?YES EVER INJECT DRUGS?NO IS THERE ANYTHING ELSE WE SHOULD TALK ABOUT CONCERNING YOUR SEXUAL HISTORY OR PRACTICE?YES INTENSITY SCALE REVIEWED HOUSING: HOUSE. HOSPITALIZATION/MAJOR DIAGNOSTIC PROCEDURE SURGERIES ABOVE CHILDBIRTH 3 SEPSIS 09/2020 CARBON DIOXIDE POISONING 09/2020 ONE FALLS THIS YEAR PATIENT STATED THAT SHE DID GO THE ER 10/2020 REVIEW OF SYSTEMS CONSTITUTIONAL: ANY RECENT FEVER NO . CHILLS NO . WEIGHT CHANGE OF UNKNOWN REASONS NO . GASTROENTEROLOGY: NEW UNEXPLAINABLE CHANGES IN BOWEL CONTROL NO . CONSTIPATION NO . GENITOURINARY: ANY NEW CHANGE IN BLADDER CONTROL? NO . NEUROLOGY: NEW ONSET DIZZINESS OR NEUROLOGICAL CHANGES NOT MENTIONED NO . NEW NUMBNESS OR PAIN PATTERNS NOT MENTIONED AND PERTINENT TO TODAY'S VISIT NO . CARDIOLOGY: NEW CHEST PRESSURE NO . PATIENT DENIES NO . RESPIRATORY: UNEXPLAINABLE COUGH NO . NEW SHORTNESS OF BREATH NO . VITAL SIGNS WT 152 LBS, HT 62 IN, BMI 27.80 INDEX, BP 110/58 MM HG, HR 92 /MIN, RR 18 /MIN, TEMP 97.5 F, OXYGEN SAT % 90 @3L, SAFE IN ENV? (Y/N) YEST.ADRIAN SHEETS. EXAMINATION GENERAL EXAMINATION: GENERALNO ACUTE DISTRESS, WELL NOURISHED AND HYDRATED. PSYCHAPPROPRIATE MOOD AND AFFECT . LUNGS:CLEAR TO AUSCULTATION BILATERALLY, NO WHEEZES, RHONCHI, RALES. HEART:NO MURMURS, REGULAR RATE AND RHYTHM. ASSESSMENTS PRIMARY OSTEOARTHRITIS OF BOTH HIPS - M16.0 (PRIMARY), WE DISCUSSED THE RISKS, BENEFITS, AND POTENTIAL SIDE EFFECTS OF TRAMADOL AND SHE IS WILLING TO TRY JUST ONE TAB AT BEDTIME TO SEE IF IT HELPS TREATMENT PRIMARY OSTEOARTHRITIS OF BOTH HIPS STOP HYDROCODONE-ACETAMINOPHEN TABLET, 5-325 MG, 1 TABLET NEEDED, ORALLY, EVERY 8 HRS NEEDED FOR PAIN MDD 3 START TRAMADOL HCL TABLET, 50 MG, 1 TABLET NEEDED, ORALLY, TWICE DAILY, 7 DAYS, 14 NOTES: 70-YEAR-OLD FEMALE IN FOR CHRONIC PAIN FOLLOW-UP. GIVEN PRESENTING SYMPTOMS RECOMMEND STOPPING HYDROCODONE DUE TO DROWSINESS AND STARTING TRAMADOL 50 MG TWICE DAILY X1 WEEK TO DETERMINE EFFICACY. SHOULD MEDICATION HELP ALLEVIATE PATIENT'S PAIN SYMPTOMS WITHOUT CAUSING DROWSINESS PATIENT WILL CALL BACK IN 1 WEEK AND THIS HEAD [facility] WILL SEND A NEW PRESCRIPTION FOR TRAMADOL. DISCUSSED HYDROCODONE PRESCRIPTION WITH PATIENT AND SHE WILL BRING IT WITH HER AT THE NEXT VISIT FOR DESTRUCTION AT [facility]. PATIENT HAS EXPRESSED UNDERSTANDING OF AND WAS IN AGREEMENT WITH TREATMENT PLAN. GIVEN TIME TO ASK QUESTIONS AND EXPRESS CONCERNS. ISTOP REGISTRY REVIEWED AND DEMONSTRATES COMPLLIANCE. (REF # ) BRINGS IN MEDICATIONS WHICH IS APPROPRIATE FOR WHAT WAS DISPENSED. RECENT URINE TOXICOLOGY REVIEWED. NO UNAUTHORIZED MEDICATIONS. NO ILLICIT SUBSTANCES AND PRESCRIBED MEDICATIONS WERE PRESENT. PRINTED INFORMATION ON NEW MEDICATION, [place] SHEETS. PROCEDURE CODES FA211 ESTABILISHED PATIENT [facility] CHARGE DISPOSITION & COMMUNICATION FOLLOW UP 4 WEEKS (REASON: NEW MED) ELECTRONICALLY SIGNED BY PEG REYES ON 01/02/2021 AT 08:28 AM EDT DISCLAIMER : THIS IS A VISIT SUMMARY EXTRACTED FROM THE [employer] CHART. IT IS NOT A COPY OF THE [employer] PROGRESS NOTE. TRAVIS
== END ==
LOC: M PAIN 14:30
PROVIDERS: ATTEND Family Medicine
DX: M16.0 Bilateral primary osteoarthritis of hip (principal); G89.29 Other chronic pain; J44.9 Chronic obstructive pulmonary disease, unspecified; K21.9 Gastro-esophageal reflux disease without esophagitis; E55.9 Vitamin D deficiency, unspecified; F17.210 Nicotine dependence, cigarettes, uncomplicated; Z86.59 Personal history of other mental and behavioral disorders; Z88.0 Allergy status to penicillin; Z88.2 Allergy status to sulfonamides; Z88.8 Allergy status to other drugs, medicaments and biological substances; Z79.82 Long term (current) use of aspirin; Z79.899 Other long term (current) drug therapy

== ENCOUNTER → 2021-01-29 | Outpatient (CLI) | payer MEDICARE ==
--- NOTE | 2021-01-31 01:19 | ECWPNPC ---
PATIENT NAME: KULWANT ANTHONY : 1950 GENDER: FEMALE VISIT DATE: 01/29/2021 DISCHARGE DATE: 01/29/21 1441 VISIT LOCKED DATE TIME: PHYSICIAN: JESSICA FRASER RESOURCE: JESSICA FRASER REASON FOR APPOINTMENT 1. NEW MED HISTORY OF PRESENT ILLNESS GENERAL: HPI 70-YEAR-OLD FEMALE IN FOR CHRONIC PAIN FOLLOW-UP. AT LAST CLINIC VISIT PATIENT WAS STARTED ON TRAMADOL GIVEN THE SEDATION FROM HER HYDROCODONE AND PATIENT ADMITS THE TRAMADOL WAS INEFFECTIVE. SHE RATES HER PAIN CURRENTLY AT AN 8 OUT OF 10 AND DESCRIBES IT ACHING AND INTERMITTENT.. -. FALL RISK SCREENING: SCREENING TWO FALLS REPORTED IN THE LAST YEAR WITHOUT INJURY. PAIN SCREENING: PATIENT HAS A COMPLAINT OF ACUTE OR CHRONIC PAIN :YES LOCATION OF PAIN:LEFT HIP, RIGHT HIP INTENSITY OF PAIN (SCALE OF 1 TO 10):8 WHAT DOES YOUR PAIN FEEL LIKE:ACHING, INTERMITTENT DURATION:INTERMITTENT PAIN IS INCREASED BY:ACTIVITIES, PROLONGED STANDING PAIN IS DECREASED BY:USE OF PAIN MEDICATIONS, SITTING NURSING NOTE: -. PAIN CENTER INTAKE QUESTIONS: DO YOU HAVE A HISTORY OF MRSA? :NO DO YOU TAKE A BLOOD THINNERS? :NO ASPIRIN 81 MG DO YOU HAVE ANY BLEEDING DISORDERS? :NO ANY NEW NUMBNESS OR WEAKNESS IN YOUR LEGS OR ARMS? :NO ANY PACEMAKER,DEFIBRILLATOR, OR DORSAL COLUMN STIMULATOR? :NO DO YOU HAVE ANY RASHES OR OPEN SORES? :NO ARE YOU ALLERGIC TO IV DYE? :NO ARE YOU DIABETIC? :NO ANY NEW PROBLEMS WITH YOUR MEDICATIONS? :NO HAVE YOU RECEIVED A VACCINE IN THE PAST 30 DAYS? :NO DO YOU PLAN TO RECEIVE A VACCINE IN THE NEXT 21 DAYS? :NO DO YOU NEED ANY PRESCRIPTION? :NO DO YOU TAKE ANY IMMUNOSUPPRESSIVE MEDICATIONS? :NO CURRENT MEDICATIONS TAKING METOPROLOL TARTRATE 25 MG TABLET 1 TABLET WITH FOOD ORALLY TWICE A DAY TAKING ASPIRIN 81 MG TABLET DELAYED RELEASE 1 TABLET ORALLY ONCE A DAY IN THE AFTERNOON TAKING ATORVASTATIN CALCIUM 20 MG TABLET 1 TABLET ORALLY ONCE A DAY IN THE MORNING TAKING OXYGEN HOME AND PORTABLE (MOBILE WITHIN HOME), DX=J44.9 88% RA AMB, 92% C O2 AMB. 89% RA RESTING, 93% C O2 RESTING 24/7, NOTES: REQUESTING INOGEN TAKING SPIRIVA RESPIMAT 2.5 MCG/ACT AEROSOL SOLUTION 2 PUFFS INHALATION ONCE A DAY TAKING ADVAIR DISKUS 100-50 MCG/DOSE MISCELLANEOUS 1 PUFF INHALATION TWICE A DAY TAKING ALBUTEROL SULFATE (2.5 MG/3ML) 0.083% NEBULIZATION SOLUTION 3 ML INHALATION THREE TIMES A DAY TAKING PROAIR HFA 108 (90 BASE) MCG/ACT AEROSOL SOLUTION 2 PUFFS INHALATION EVERY 4 HRS NEEDED TAKING IBUPROFEN 200 MG TABLET 4 TABLETS ORALLY 4 TIMES A DAY TAKING OMEPRAZOLE 20 MG TABLET DELAYED RELEASE 2 TABLETS ORALLY ONCE A DAY TAKING SEROQUEL 50 MG TABLET 1 TABLET AT BEDTIME, ALONG WITH THE SEROQUEL 400 MG ORALLY ONCE A DAY TAKING VIIBRYD 40 MG TABLET 1 TABLET WITH FOOD ORALLY ONCE A DAY IN THE MORNING TAKING LORAZEPAM 0.5 MG TABLET 1 TABLET ORALLY 5 TIMES A DAY NEEDED, MDD=5 TAKING PROLIA 60 MG/ML SOLUTION 1 PRE-FILLED SYRINGE SUBCUTANEOUS EVERY 6 MONTHS TAKING CALCIUM CITRATE PLUS - TABLET 1 TAB ORALLY TWICE A DAY TAKING POSTURE-D CALCIUM/MAGNESIUM [phone] TABLET 1 TABLET ORALLY TWICE A DAY TAKING FLONASE ALLERGY RELIEF 50 MCG/ACT SUSPENSION 1 SPRAY IN EACH NOSTRIL NASALLY ONCE A DAY TAKING GLUCOSAMINE 500 MG TABLET 1 TABLET ORALLY TWICE A DAY TAKING VITAMIN C 500 MG CAPSULE DIRECTED ORALLY TAKING NEBULIZER - DEVICE DIRECTED DX: J44.9 DAILY, NOTES: FAX TO [facility] TAKING VITAMIN D (ERGOCALCIFEROL) 62473 UNIT CAPSULE 1 CAPSULE ORALLY ONCE A MONTH NOT-TAKING PREDNISONE 20 MG TABLET 2 TABS QD X 14D, THEN 1 TAB QD X 14D ORALLY ONCE A DAY NOT-TAKING TRAMADOL HCL 50 MG TABLET 1 TABLET NEEDED ORALLY TWICE DAILY NOT-TAKING PREDNISONE 20 MG TABLET 3 TABS QAM X 4D, THEN 2 TABS X 4D, THEN 1 TAB X 4D, THEN 1/2 TAB X 4D ORALLY ONCE A DAY, NOTES: LAST DOSE 10/29/2020 NOT-TAKING CEFDINIR 300 MG CAPSULE 1 CAP ORALLY TWICE A DAY MEDICATION LIST REVIEWED AND RECONCILED WITH THE PATIENT PAST MEDICAL HISTORY HYPERLIPIDEMIA COPD SMOKER POSTTRAUMATIC STRESS DISORDER ANXIETY WITH DEPRESSION GERD STRESS INCONTINENCE DIFFUSE OSTEOARTHRITIS OSTEOPOROSIS LEFT-SIDED SCIATICA VITAMIN D DEFICIENCY COVID VACCINE X 2, MODERNA, 07/2020 ONE FALLS THIS YEAR PATIENT STATED THAT SHE DID GO THE ER ALLERGIES PENICILLIN (FOR ALLERGIES USE ONLY): RASH - ALLERGY FOSAMAX: RASH - SIDE EFFECTS SULFA (FOR ALLERGY USE ONLY): RASH - ALLERGY SURGICAL HISTORY APPENDECTOMY CHILDHOOD SURGERY OF THE FEET 1967 UNILATERAL NEPHRECTOMY FAMILY HISTORY SON(S): ALIVE 1 BROTHER(S) , 3 SISTER(S) . 21 SON(S) , 1 DAUGHTER(S) . 1 SISTER OF HEART/LUNG DISEASE. SON DIAGNOSED WITH CANCER. SOCIAL HISTORY GENERAL: TOBACCO USE ARE YOU A:CURRENT SMOKER ARE YOU INTERESTED IN QUITTING?THINKING ABOUT QUITTING - HAS CUT DOWN TO LESS THAN 1 PPD COUNSELED THE PATIENT ON SMOKING CESSATION, EDUCATION [id number]/04/2021 HOW MANY CIGARETTES A DAY DO YOU SMOKE?11-20 HOW SOON AFTER YOU WAKE UP DO YOU SMOKE YOUR FIRST CIGARETTE?6-30 MIN HOW OFTEN DO YOU SMOKE CIGARETTES?EVERY DAY PATIENT COUNSELED ON THE DANGERS OF TOBACCO USE AND URGED TO QUIT:11/11/2020 LATEX QUESTIONNAIRE LATEX ALLERGY : HAVE YOU EVER DEVELOPED ANY TYPE OF REACTION AFTER HANDLING LATEX PRODUCTS SUCH RUBBER GLOVES, CONDOMS, DIAPHRAGMS, BALLOONS, SOCKS, OR UNDERWEAR?NO LATEX ALLERGY : HAVE YOU EVER DEVELOPED ANY TYPE OF REACTION DURING OR AFTER DENTAL APPOINTMENT, VAGINAL/RECTAL EXAMINATION, SURGICAL PROCEDURE, OR ANY OTHER EXPOSURE?NO LATEX RISK : HAVE YOU EVER HAD ANY DIFFICULTY BREATHING OR HIVES AFTER EATING OR HANDLING ANY FRUITS, OR VEGETABLES; SUCH KIWI, BANANAS, STONE FRUITS, OR CHESTNUTSNO LATEX RISK : DO YOU HAVE A PREVIOUS PERSONAL HISTORY OF MORE THAN NINE SURGERIES, SPINA BIFIDA, OR REPEATED CATHERIZATIONS? NO LATEX RISK : ARE YOU FREQUENTLY EXPOSED TO LATEX PRODUCTS IN YOUR OCCUPATION?NO DATE ASKED : 01/29/2021 ALCOHOL USE: RARELY. RECREATIONAL DRUG USE: NEVER DRUG USE?NO NO CAFFEINE HOW OFTEN AND HOW MUCH? 4 CUPS OF COFFEE A DAY HIV / HEP-C SCREENING REASON:PATIENT DECLINED REASON:PATIENT DECLINED HIV TEST OFFERED TO PATIENT:YES HEP-C TEST OFFERED TO PATIENT:YES LANGUAGE LANGUAGES SPOKEN:[place] EDUCATION LEVEL OF EDUCATION:FINISHED HIGH SCHOOL LEARNING BARRIERS / SPECIAL NEEDS CHANGE FROM LAST VISIT?NO BARRIERS TO LEARNING?YES COMMENTS SHORT TERM MEMORY LOST HEARING IMPAIRED?YES :HEARING AIDES VISION IMPAIRED?YES :CORRECTIVE LENSES COGNITIVELY IMPAIRED?NO READINESS TO LEARN?YES LEARNING PREFERENCES?NO LEARNING CAPABILITIES PRESENT?YES EMOTIONAL BARRIERS?NO SPECIAL DEVICES?YES :CANE, WALKER DENTURE CONTOUR WIRE SPECIALIST NEEDED?NO NO DOMESTIC VIOLENCE . OCCUPATION: UNEMPLOYED. EXERCISE: NO REGULAR EXERCISE. MARITAL STATUS: SINGLE. NO OTHERS AT HOME. IMMUNIZATION PROGRAM ELIGIBILITY STATUS UNCHANGED:__ PARENT LAST NAME:__ FIRST NAME, MIDDLE INITIAL:__ MOTHER'S MAIDEN NAME:__ MEDICAID/MEDICAID MANAGED CARE PLAN:__ NOT INSURED:__ /[place] [employer] [place]:__ UNDERINSURED:__ CHILD HEALTH PLUS B__ INSURANCE:__ INFLUENZA VACCINE:__ MALE 6 MONTH RISK ASSESSMENT FOR STD MONOGOMOUS?YES HIV POSITIVE?NO EVER INJECT DRUGS?NO FEMALE 6 MONTH RISK ASSESSMENT FOR STD DESCRIBE YOUR SEXUAL PARTNERS:MALE MONOGAMOUS?YES EVER INJECT DRUGS?NO IS THERE ANYTHING ELSE WE SHOULD TALK ABOUT CONCERNING YOUR SEXUAL HISTORY OR PRACTICE?YES INTENSITY SCALE REVIEWED HOUSING: HOUSE. HOSPITALIZATION/MAJOR DIAGNOSTIC PROCEDURE SURGERIES ABOVE CHILDBIRTH 3 SEPSIS 09/2020 CARBON DIOXIDE POISONING 09/2020 ONE FALLS THIS YEAR PATIENT STATED THAT SHE DID GO THE ER 10/2020 REVIEW OF SYSTEMS CONSTITUTIONAL: ANY RECENT FEVER NO . CHILLS NO . WEIGHT CHANGE OF UNKNOWN REASONS NO . GASTROENTEROLOGY: NEW UNEXPLAINABLE CHANGES IN BOWEL CONTROL NO . CONSTIPATION NO . GENITOURINARY: ANY NEW CHANGE IN BLADDER CONTROL? NO . NEUROLOGY: NEW ONSET DIZZINESS OR NEUROLOGICAL CHANGES NOT MENTIONED NO . NEW NUMBNESS OR PAIN PATTERNS NOT MENTIONED AND PERTINENT TO TODAY'S VISIT NO . CARDIOLOGY: NEW CHEST PRESSURE NO . PATIENT DENIES NO . RESPIRATORY: UNEXPLAINABLE COUGH NO . NEW SHORTNESS OF BREATH NO . VITAL SIGNS WT 152.0 LBS, WT-KG 68.95 KG, HT 62 IN, BMI 27.80 INDEX, BP 127/66 MM HG, HR 119 /MIN, RR 18 /MIN, TEMP 99.0 F, OXYGEN SAT % 90%, SAFE IN ENV? (Y/N) YES, NA INITIALS AW 1417, REVIEWED BY: ED GIBSON MA. EXAMINATION GENERAL EXAMINATION: GENERALNO ACUTE DISTRESS, WELL NOURISHED AND HYDRATED. PSYCHAPPROPRIATE MOOD AND AFFECT . LUNGS:BIBASILAR CRACKLES AND BILATERAL WHEEZES NOTED UPON AUSCULTATION . HEART:NO MURMURS, REGULAR RATE AND RHYTHM. ASSESSMENTS PRIMARY OSTEOARTHRITIS OF BOTH HIPS - M16.0 (PRIMARY), WE DISCUSSED THE RISKS, BENEFITS, AND POTENTIAL SIDE EFFECTS OF TRAMADOL AND SHE IS WILLING TO TRY JUST ONE TAB AT BEDTIME TO SEE IF IT HELPS TREATMENT PRIMARY OSTEOARTHRITIS OF BOTH HIPS STOP TRAMADOL HCL TABLET, 50 MG, 1 TABLET NEEDED, ORALLY, TWICE DAILY, 7 DAYS, 14 START ACETAMINOPHEN-CODEINE #3 TABLET, 300-30 MG, 1 TABLET NEEDED, ORALLY, DAILY PRN PAIN, 30 DAYS, 30 NOTES: 70-YEAR-OLD FEMALE IN FOR CHRONIC PAIN FOLLOW-UP. GIVEN PRESENTING SYMPTOMS RECOMMEND STARTING TYLENOL WITH CODEINE NO. 3 WITH FOLLOW-UP IN 1 MONTH TO DETERMINE EFFICACY OF TREATMENT. SEDATION FROM MEDICATION AND PATIENT'S CURRENT RESPIRATORY STATUS WAS DISCUSSED WITH PATIENT AND HER DAUGHTER INFORMED THEM THAT SHOULD THIS MEDICATION CAUSE INCREASED SEDATION THEY ARE TO CALL THIS CLINIC. PATIENT AND DAUGHTER HAVE EXPRESSED UNDERSTANDING OF AND WERE IN AGREEMENT WITH TREATMENT PLAN. GIVEN TIME TO ASK QUESTIONS AND EXPRESS CONCERNS. ISTOP REGISTRY REVIEWED AND DEMONSTRATES COMPLLIANCE. (REF #[id number] ) BRINGS IN MEDICATIONS WHICH IS APPROPRIATE FOR WHAT WAS DISPENSED. RECENT URINE TOXICOLOGY REVIEWED. NO UNAUTHORIZED MEDICATIONS. NO ILLICIT SUBSTANCES AND PRESCRIBED MEDICATIONS WERE PRESENT. OTHERS NOTES: ACETAMINOPHEN AND CODEINE MATERIAL WAS PRINTED AND PROVIDED TO PATIENT. PATIENT VERBALIZED AN UNDERSTANDING. LACIE GIBSON MA. PROCEDURE CODES FA211 ESTABILISHED PATIENT [facility] CHARGE DISPOSITION & COMMUNICATION FOLLOW UP 4 WEEKS (REASON: NEW MED) ELECTRONICALLY SIGNED BY PEG REYES ON 01/30/2021 AT 08:14 AM EDT DISCLAIMER : THIS IS A VISIT SUMMARY EXTRACTED FROM THE [employer] CHART. IT IS NOT A COPY OF THE [employer] PROGRESS NOTE. TRAVIS
== END ==
LOC: M PAIN 14:00
PROVIDERS: ATTEND Family Medicine
DX: M16.0 Bilateral primary osteoarthritis of hip (principal); G89.29 Other chronic pain; J44.9 Chronic obstructive pulmonary disease, unspecified; K21.9 Gastro-esophageal reflux disease without esophagitis; E55.9 Vitamin D deficiency, unspecified; F17.210 Nicotine dependence, cigarettes, uncomplicated; Z86.59 Personal history of other mental and behavioral disorders; Z88.0 Allergy status to penicillin; Z88.2 Allergy status to sulfonamides; Z88.8 Allergy status to other drugs, medicaments and biological substances; Z79.82 Long term (current) use of aspirin; Z79.899 Other long term (current) drug therapy